=== PATIENT | male | born 1955 | race Hispanic/Latino ===

== ENCOUNTER 2020-09-18 05:40 | Day surgery (SDC) | payer MEDICARE ==
[2020-09-17 09:13] VITALS: BP 169/84
[~2020-09-18] VITALS: Ht 177.8 cm; Wt 109.8 kg
[2020-09-18] VITALS (10 sets, daily range): BP systolic 123–148; BP diastolic 62–79
[~2020-09-18 05:40] MED LIST: DAPA5TAB PO; GLIM4TAB36 PO; INSU300I SQ; METF-444 PO; ROSU20TA31 PO; SEMA1PEN3 SQ
[2020-09-18] MEDS ORDERED: CEFAZOLIN SODIUM 1 GM VIAL IVP SCH (06:00)
[2020-09-18] MEDS ORDERED: 0.9%NACL 1000ML 1,000 ML IV ONE (06:22)
[2020-09-18] MEDS ORDERED: LIDOCAINE HCL-MPF 0.5% 50ML VIAL IJ ONE (06:50)
[2020-09-18] MEDS ORDERED: MIDAZOLAM HCL 1 MG/ML 2ML VIAL ONE ×2 (06:51→07:58)
[2020-09-18] MEDS ORDERED: PROPOFOL 10 MG/ML 20ML VIAL IV ONE (06:52)
[2020-09-18] MEDS ORDERED: FENTANYL CITRATE PF 50 MCG/1 ML 2ML VIAL ONE ×2 (06:52→07:46)
[2020-09-18] MEDS ORDERED: ONDANSETRON 4MG INJ ONE (07:20)
== END 2020-09-18 09:40 | disposition home or self-care (01) ==
LOC: DAH 05:40
PROVIDERS: ATTEND Neurological Surgery
DX: G56.01 Carpal tunnel syndrome, right upper limb (principal); Z20.822 Contact with and (suspected) exposure to COVID-19; E66.01 Morbid (severe) obesity due to excess calories; E11.9 Type 2 diabetes mellitus without complications; Z79.899 Other long term (current) drug therapy; Z98.1 Arthrodesis status; Z79.84 Long term (current) use of oral hypoglycemic drugs; Z98.890 Other specified postprocedural states
CPT/HCPCS: 64721; 82948 ×2; 87635; A4215; A4221; A4222; A4223; C9803; J0690; J2250 ×2; J2405; J3010 ×2; J3490; J7030; J2704

== ENCOUNTER → 2021-05-14 | Outpatient (CLI) | payer MEDICARE | END | disposition home or self-care (01) | LOC: RAH 13:12 | PROVIDERS: ATTEND Physical Medicine & Rehabilitation | DX: M47.816 Spondylosis without myelopathy or radiculopathy, lumbar region (principal); M48.061 Spinal stenosis, lumbar region without neurogenic claudication; M43.5X6 Other recurrent vertebral dislocation, lumbar region | CPT/HCPCS: 72114 ==

== ENCOUNTER → 2023-01-09 | Outpatient (CLI) | payer MEDICARE ==
[~2023-01-09] MED LIST changes: -ROSU20TA31 PO; +ROSU20TA73 PO
== END | disposition home or self-care (01) ==
LOC: RAH 14:46
PROVIDERS: ATTEND Physical Medicine & Rehabilitation
DX: M48.02 Spinal stenosis, cervical region (principal); M43.22 Fusion of spine, cervical region
CPT/HCPCS: 72050

== ENCOUNTER → 2023-02-20 | Outpatient (CLI) | payer MEDICARE | END | disposition home or self-care (01) | LOC: RAH 15:40 | PROVIDERS: ATTEND Internal Medicine | DX: S90.32XA Contusion of left foot, initial encounter (principal); X58.XXXA Exposure to other specified factors, initial encounter; Y93.89 Activity, other specified; Y92.89 Other specified places as the place of occurrence of the external cause; Y99.8 Other external cause status | CPT/HCPCS: 73620 ==

== ENCOUNTER → 2023-04-16 | Outpatient (CLI) | payer MEDICARE | END | disposition home or self-care (01) | LOC: RAH 15:33 | PROVIDERS: ATTEND Internal Medicine | DX: I10 Essential (primary) hypertension (principal) | CPT/HCPCS: 71046 ==